=== PATIENT | female | born 1955 | race African-American/Black ===

== ENCOUNTER 2016-11-24 20:56 | Emergency (ER) | payer BC, MEDICARE ==
[2016-11-24] MEDS ORDERED: ASPIRIN 81 MG TABLET, CHEWABLE PO ONE (20:59)
--- NOTE | 2016-11-24 21:22 | RADIOLOGY REPORT (SQ) ---
EXAM DESCRIPTION: CHEST SINGLE VIEW COMPLETED DATE/TIME: 11/24/2016 9:12 pm REASON FOR STUDY: CP/ SOB COMPARISON: 05/13/2014 EXAM PARAMETERS: NUMBER OF VIEWS: One view. TECHNIQUE: Single frontal radiographic view of the chest acquired. RADIATION DOSE: NA LIMITATIONS: None. FINDINGS: LUNGS AND PLEURA: No opacities, masses or pneumothorax. No pleural effusion. MEDIASTINUM AND HILAR STRUCTURES: No masses. Contour normal. HEART AND VASCULAR STRUCTURES: Heart normal in size. Normal vasculature. BONES: No acute findings. HARDWARE: None in the chest. OTHER: No other significant finding. IMPRESSION: NO ACUTE RADIOGRAPHIC FINDING IN THE CHEST. TECHNICAL DOCUMENTATION: JOB ID: [id number]
[2016-11-24 21:24] LABS: ABSOLUTE EOSINOPHILS # (AUTO) 0.1 10^3/uL (0.0-0.6); ABSOLUTE MONOCYTES (AUTO) 0.5 10^3/uL (0.1-1.4); ABSOLUTE NEUT (AUTO) 1.9 10^3/uL (1.7-8.2); BASOPHILS % (AUTO) 0.9 % (0-2); EOSINOPHILS % (AUTO) 1.5 % (0-6); HEMATOCRIT 39.1 % (36.0-47.0); HGB HCT DIFFERENCE -0.1; LYMPHOCYTES % (AUTO) 54.5 % (13-45); MEAN CORPUSCULAR HEMOGLOBIN 30.4 pg (27.0-33.4); MEAN CORPUSCULAR HGB CONC 33.2 g/dL (32.0-36.0); MEAN CORPUSCULAR VOLUME 91 fl (80-97); MONOCYTES % (AUTO) 8.3 % (3-13); RED BLOOD COUNT 4.28 10^6/uL (3.72-5.28); RED CELL DISTRIBUTION WIDTH 14.1 % (11.5-14.0); SEGMENTED NEUTROPHILS % (AUTO) 34.8 % (42-78); WHITE BLOOD COUNT 5.5 10^3/uL (4.0-10.5)
[2016-11-24] MEDS ORDERED: SUCRALFATE 1 GM TABLET PO ONE (21:31)
[2016-11-24] MEDS ORDERED: FAMOTIDINE 20 MG TABLET PO ONE (21:31)
[2016-11-24] MEDS ORDERED: OXYCODONE-ACETAMINOPHEN 5-325 MG TABLET PO ONE (21:31)
--- NOTE | 2016-11-24 21:34 | ER Document Report ---
ED General - General Chief Complaint: Chest Pain Stated Complaint: CHEST PAIN Time Seen by Provider: 11/24/16 21:25 Notes: Patient is a 61-year-old female who comes emergency department by EMS for chief complaint of chest pain. She states it is a burning pain in her left upper abdomen and lower chest and also in the upper mid abdomen. Symptoms started 1 hour prior to arrival. She reports nausea. She denies radiation of pain, injury, shortness of breath. She states she was wheezing when she was given a treatment prior to arrival along with Zofran and 1 sublingual nitroglycerin tablet. She takes omeprazole for GERD, has a history of COPD/asthma, has not smoked since 1983, also has a history of hypertension, IBS she denies any cardiovascular history personally or in her family. PMH of hysterectomy. TRAVEL OUTSIDE OF THE [place] IN LAST 30 DAYS: No - Related Data Allergies/Adverse Reactions: diphenhydramine HCl [From Benadryl] Allergy (Verified 05/13/14 07:56) metronidazole [From Flagyl] Allergy (Verified 05/13/14 07:56) Metronidazole HCl [From Flagyl] Allergy (Verified 05/13/14 07:56) Penicillins Allergy (Verified 05/13/14 07:56) Past Medical History - General Information source: Patient - Social History Smoking Status: Former Smoker Frequency of alcohol use: None Drug Abuse: None Lives with: Family Family History: Reviewed & Not Pertinent - Past Medical History Cardiac Medical History: Reports: Hx Hypertension Denies: Hx Congestive Heart Failure, Hx Coronary Artery Disease, Hx Heart Attack, Hx Pulmonary Embolism Pulmonary Medical History: Reports: Hx Asthma, Hx COPD, Hx Pneumonia Endocrine Medical History: Denies: Hx Diabetes Mellitus Type 1, Hx Diabetes Mellitus Type 2 GI Medical History: Reports: Hx Gastroesophageal Reflux Disease, Hx Hiatal Hernia Past Surgical History: Reports: Hx Hysterectomy, Hx Orthopedic Surgery - spine Review of Systems - Review of Systems Constitutional: No symptoms reported EENT: No symptoms reported Cardiovascular: See HPI Respiratory: No symptoms reported Gastrointestinal: See HPI Genitourinary: No symptoms reported Female Genitourinary: No symptoms reported Musculoskeletal: No symptoms reported Skin: No symptoms reported Hematologic/Lymphatic: No symptoms reported Neurological/Psychological: No symptoms reported Physical Exam - Vital signs Vitals: Resp Pulse Ox 18 100 11/24/16 21:09 11/24/16 21:09 Interpretation: Normal - General General appearance: Anxious In distress: Mild - patient appears to be in some pain, but no severe distress - HEENT Head: Normocephalic, Atraumatic Eyes: Normal Pupils: PERRL - Respiratory Respiratory status: No respiratory distress Chest status: Nontender Breath sounds: Normal. No: Decreased air movement, Rhonchi Chest palpation: Normal - Cardiovascular Rhythm: Regular. No: Tachycardia Heart sounds: Normal auscultation, S1 appreciated, S2 appreciated Murmur: No - Abdominal Inspection: Normal Distension: No distension Bowel sounds: Normal Tenderness: Nontender, Tender - tender in general upper abdomen, worse in LUQ and epigastric areas, lower abdomen benign Organomegaly: No organomegaly - Back Back: Normal, Nontender. No: Tender - Extremities General upper extremity: Normal inspection, Nontender, Normal color, Normal ROM , Normal temperature General lower extremity: Normal inspection, Nontender, Normal color, Normal ROM , Normal temperature, Normal weight bearing. No: Cal's sign - Neurological Neuro grossly intact: Yes Cognition: Normal Orientation: AAOx4 [place] Coma Scale Eye Opening: Spontaneous Dora Coma Scale Verbal: Oriented Dora Coma Scale Motor: Obeys Commands [place] Coma Scale Total: 15 Speech: Normal Motor strength normal: LUE, RUE, LLE, RLE Sensory: Normal - Psychological Associated symptoms: Normal affect, Normal mood, Anxious - Skin Skin Temperature: Warm Skin Moisture: Dry Skin Color: Normal Course - Re-evaluation Re-evalutation: On examination patient has left upper quadrant and epigastric pain, she actually appears quite uncomfortable. Given multiple medications, she states it is a burning pain so she will be also given Carafate and Pepcid. EKG shows sinus rhythm with no T-wave inversions or ST segment abnormalities in consecutive leads. No comparison EKG. chest x-ray unremarkable. CBC, chemistry, lipase unremarkable. On reevaluation she is still uncomfortable. Patient has had previous abdominal surgeries, pain is in the general mid upper abdomen now, after discussion we will perform CAT scan to rule out any obstructive pathology. No free air on chest x-ray. No fever, tachycardia, or hypotension. Appears to be gastrointestinal in source, however we will cycle troponin because of timeframe with initial symptoms. After pain medication patient is now symptom-free. She just has hiccups intermittently. 11/25/16 02:[address] Bradford. Repeat troponin found to be significantly elevated at 0.22, called and spoke with [facility], they do not have any beds, patient prefers [facility] after this. Spoke with Dr. Smith, internal medicine, patient will be admitted to his service, he requests in addition to the Lovenox given that patient also be given 80 mg of Lipitor. Patient was already previously given aspirin. Patient anxious, asking for valium, given small dose. 11/25/16 04:15 Patient now complaining of chest pain again, repeating EKG, givine 2 mg morphine , placing on nitroglycerine drip. 11/25/16 04:27 Called and spoke with transfer center, informed them that patient is now on nitroglycerin drip and repeating EKG, this does not change bed status per transfer center. 11/25/16 04:43 EKG with no change from prior. Patient chest pain free, denies any current complaints. Unremarkable vital signs. Stable for transport, transport team has just arrived. - Vital Signs Vital signs: Temp Pulse Resp BP Pulse Ox 20 150/86 H 99 11/25/16 04:37 11/25/16 04:37 11/25/16 04:37 - Laboratory Result Diagrams: 11/24/16 21:15 11/24/16 21:15 Laboratory results interpreted by me: 11/24/16 11/24/16 21:15 21:15 RDW 14.1 H Plt Count 114 L Seg Neutrophils % 34.8 L Lymphocytes % 54.5 H Carbon Dioxide 31 H Creatine Kinase 147 H Critical Care Note - Critical Care Note Total time excluding time spent on procedures (mins): 40 - NSTEMI, chest pain, abdominal pain Comments: Please allow 40 minutes of critical care time for evaluation, treatment, review of old records, discussion with patient and family, consultation and transfer to tertiary care center. Interventions including aspirin, Lovenox, nitroglycerin drip, pain medications. Discharge - Discharge Clinical Impression: NSTEMI (non-ST elevated myocardial infarction) Chest pain Qualifiers: Chest pain type: unspecified Qualified Code(s): R07.9 - Chest pain, unspecified Abdominal pain Qualifiers: Abdominal location: upper abdomen, unspecified Qualified Code(s): R10.10 - Upper abdominal pain, unspecified Condition: Stable Disposition: [facility] Referrals: YANE GUERRERO MD [Primary Care Provider] - Follow up as needed
[2016-11-24 21:42] LABS: ALANINE AMINOTRANSFERASE 27 U/L (9-52); ALBUMIN 4.2 g/dL (3.5-5.0); ALKALINE PHOSPHATASE 53 U/L (38-126); ANION GAP 10 (5-19); ASPARTATE AMINO TRANSFERASE 31 U/L (14-36); BILIRUBIN,DIRECT 0.4 mg/dL (0.0-0.4); BILIRUBIN,TOTAL 0.5 mg/dL (0.2-1.3); BLOOD UREA NITROGEN 15 mg/dL (7-20); CALCIUM 9.9 mg/dL (8.4-10.2); CARBON DIOXIDE 31 mmol/L (22-30); CHLORIDE 104 mmol/L (98-107); CREATINE KINASE 147 U/L (30-135); CREATININE RESULT 0.86 mg/dL (0.52-1.25); GLUCOSE 98 mg/dL (75-110); POTASSIUM 3.9 mmol/L (3.6-5.0); SODIUM 144.9 mmol/L (137-145); TOTAL PROTEIN 7.2 g/dL (6.3-8.2)
[2016-11-24 21:57] LABS: TROPONIN I < 0.012 ng/mL
[2016-11-24 22:20] LABS: APPEARANCE,URINE SLIGHTLY-CLOUDY; BILIRUBIN,URINE NEGATIVE (NEGATIVE); GLUCOSE, URINE NEGATIVE (NEGATIVE); KETONES,URINE NEGATIVE (NEGATIVE); LEUKOCYTE ESTERASE,URINE NEGATIVE (NEGATIVE); NITRITE,URINE NEGATIVE (NEGATIVE); PROTEIN,URINE NEGATIVE (NEGATIVE); URINE SPECIFIC GRAVITY 1.014; UROBILINOGEN,URINE NEGATIVE mg/dL (<2.0)
[2016-11-24] MEDS ORDERED: ONDANSETRON HCL INJ/PF 4 MG/2 ML SDV IV ONE (22:40)
[2016-11-24] MEDS ORDERED: HYDROMORPHONE HCL INJ/PF 2 MG/ML AMPULE IV ONE (22:40)
--- NOTE | 2016-11-25 01:58 | RADIOLOGY REPORT (SQ) ---
EXAM DESCRIPTION: CT ABD/PELVIS ORAL ONLY COMPLETED DATE/TIME: 11/25/2016 1:30 am REASON FOR STUDY: sharp mid/upper abd pain COMPARISON: CR, chest, 11/24/2016. TECHNIQUE: CT scan of the abdomen and pelvis performed without intravenous contrast. Oral contrast only. Images reviewed with lung, soft tissue, and bone windows. Reconstructed coronal and sagittal M MN images reviewed. All images stored on PACS. All CT scanners at this facility use dose modulation, iterative reconstruction, and/or weight based d osing when appropriate to reduce radiation dose to as low as reasonably achievable (ALARA). [facility]: Dose Right [facility]: CareDose [facility]: Dose Right [facility]: Teradose 4D [facility]: Smart doForms RADIATION DOSE: Up-to-date CT equipment and radiation dose reduction techniques were employed. CTDIv ol: 13.9 mGy. DLP: 683 mGy-cm.mGy. LIMITATIONS: No IV contrast. Allergy history noted. FINDINGS: LOWER CHEST: Small bilateral lower lobar atelectasis or scar. NON-CONTRASTED LIVER, SPLEEN, ADRENALS: Evaluation limited by lack of IV contrast. No identified sign ificant masses. PANCREAS: No masses. No peripancreatic inflammatory changes. GALLBLADDER: No identified stones by CT criteria. No inflammatory changes to suggest cholecystitis. RIGHT KIDNEY AND URETER: No suspicious masses. Assessment limited by lack of IV contrast. No signif icant calcifications. No hydronephrosis or hydroureter. LEFT KIDNEY AND URETER: No suspicious masses. Assessment limited by lack of IV contrast. No signifi cant calcifications. No hydronephrosis or hydroureter. AORTA AND RETROPERITONEUM: No aneurysm. No retroperitoneal masses or adenopathy. BOWEL AND PERITONEAL CAVITY: No obvious masses or inflammatory changes. No free fluid. APPENDIX: No evidence of appendicitis. PELVIS, BLADDER, AND ABDOMINAL WALL:No abnormal masses. No free fluid. Bladder normal. BONES: Mild disc desiccation. Moderate levo convexity. OTHER: No other significant finding. IMPRESSION: NO SIGNIFICANT OR ACUTE PROCESS IN THE ABDOMEN OR PELVIS. TECHNICAL DOCUMENTATION: JOB ID: [id number] Quality ID # [id number]: Final reports with documentation of one or more dose reduction techniques (e.g., Au tomated exposure control, adjustment of the mA and/or kV according to patient size, use of iterative reconstruction technique) 2010 [employer]- All Rights Reserved
[2016-11-25] MEDS ORDERED: ATORVASTATIN CALCIUM 80 MG TABLET PO ONE (03:11)
[2016-11-25] MEDS ORDERED: ENOXAPARIN SODIUM INJ 100 MG/1 ML DISP.SYRIN SUBCUT SCH ×2 (03:15)
[2016-11-25] MEDS ORDERED: DIAZEPAM INJ 10 MG/2 ML DISP.SYRIN IV ONE (03:20)
[2016-11-25] MEDS ORDERED: NITROGLYCERIN/D5W 250 ML IV PRN (04:25)
[2016-11-25] MEDS ORDERED: MORPHINE SULFATE 10 MG/ML INJ IV ONE (04:25)
[2016-11-25] MEDS ORDERED: NITROGLYCERIN/D5W 50 MG/250 ML RTUINJ IV ONE (04:29)
[2016-11-25] MEDS ORDERED: MORPHINE SULFATE 10 MG/ML INJ ONE (04:30)
[2016-11-25 04:43] VITALS: BP 150/86
--- NOTE | 2016-11-25 10:49 | EKG REPORT ---
SEVERITY:- BORDERLINE ECG - SINUS RHYTHM PROBABLE LEFT ATRIAL ABNORMALITY : Confirmed by: Lilian Barker 25-Nov-2016 10:48:32
== END 2016-11-25 04:51 | disposition short-term general hospital (02) ==
LOC: ER 20:56
DX: I21.4 Non-ST elevation (NSTEMI) myocardial infarction (principal); R10.10 Upper abdominal pain, unspecified; R07.9 Chest pain, unspecified; R11.0 Nausea; K21.9 Gastro-esophageal reflux disease without esophagitis; I10 Essential (primary) hypertension; K58.9 Irritable bowel syndrome, unspecified; Z88.0 Allergy status to penicillin
CPT/HCPCS: 93005; 99291; 96372; 96375; 96365; 36415; 82553; 82550; 83690; 85025; 80053; 81001; 84484; 71010; 74176; 93010; A9270 ×5; J3360; J2270; J1170; J2405; J3490; J1650

== ENCOUNTER 2017-08-05 11:39 | Emergency (ER) | payer BC, MEDICARE ==
[2017-08-05] MEDS ORDERED: ASPIRIN 81 MG TABLET, CHEWABLE PO ONE (12:56)
[2017-08-05 13:17] LABS: ABSOLUTE BASOPHILS # (AUTO) 0.1 10^3/uL (0.0-0.2); ABSOLUTE EOSINOPHILS # (AUTO) 0.1 10^3/uL (0.0-0.6); ABSOLUTE LYMPHOCYTES (AUTO) 2.6 10^3/uL (0.5-4.7); ABSOLUTE MONOCYTES (AUTO) 0.4 10^3/uL (0.1-1.4); ABSOLUTE NEUT (AUTO) 2.2 10^3/uL (1.7-8.2); BASOPHILS % (AUTO) 1.2 % (0-2); EOSINOPHILS % (AUTO) 1.5 % (0-6); HEMATOCRIT 40.6 % (36.0-47.0); HEMOGLOBIN 13.2 g/dL (12.0-15.5); LYMPHOCYTES % (AUTO) 48.2 % (13-45); MEAN CORPUSCULAR HEMOGLOBIN 29.3 pg (27.0-33.4); MEAN CORPUSCULAR HGB CONC 32.4 g/dL (32.0-36.0); MEAN CORPUSCULAR VOLUME 91 fl (80-97); MONOCYTES % (AUTO) 7.1 % (3-13); RED BLOOD COUNT 4.49 10^6/uL (3.72-5.28); RED CELL DISTRIBUTION WIDTH 13.8 % (11.5-14.0); TOTAL CELLS COUNTED % (AUTO) 100 %; WHITE BLOOD COUNT 5.4 10^3/uL (4.0-10.5)
--- NOTE | 2017-08-05 13:22 | RADIOLOGY REPORT (SQ) ---
EXAM DESCRIPTION: CHEST SINGLE VIEW COMPLETED DATE/TIME: 08/05/2017 1:14 pm REASON FOR STUDY: Chest pain COMPARISON: 11/24/2016. EXAM PARAMETERS: NUMBER OF VIEWS: One view. TECHNIQUE: Single frontal radiographic view of the chest acquired. RADIATION DOSE: NA LIMITATIONS: None. FINDINGS: LUNGS AND PLEURA: No acute infiltrates or effusions. MEDIASTINUM AND HILAR STRUCTURES: No masses. Contour normal. HEART AND VASCULAR STRUCTURES: The heart is normal. The pulmonary vasculature is normal. BONES: No acute findings. HARDWARE: Findings consistent with cervical fusion. OTHER: Chest leads in place. IMPRESSION: No acute disease. TECHNICAL DOCUMENTATION: JOB ID: [id number] SC-69 2010 [employer]- All Rights Reserved Reading location - IP/workstation name: [email or web address]
[2017-08-05 13:29] LABS: ALANINE AMINOTRANSFERASE 30 U/L (9-52); ALBUMIN 4.4 g/dL (3.5-5.0); ALKALINE PHOSPHATASE 49 U/L (38-126); ANION GAP 10 (5-19); ASPARTATE AMINO TRANSFERASE 28 U/L (14-36); BILIRUBIN,DIRECT 0.3 mg/dL (0.0-0.4); BILIRUBIN,TOTAL 0.4 mg/dL (0.2-1.3); BLOOD UREA NITROGEN 17 mg/dL (7-20); CALCIUM 9.8 mg/dL (8.4-10.2); CARBON DIOXIDE 32 mmol/L (22-30); CHLORIDE 104 mmol/L (98-107); CREATINE KINASE 112 U/L (30-135); GLUCOSE 79 mg/dL (75-110); POTASSIUM 4.1 mmol/L (3.6-5.0); SODIUM 145.8 mmol/L (137-145); TOTAL PROTEIN 7.1 g/dL (6.3-8.2)
[2017-08-05 13:41] LABS: CREATINE KINASE MB 1.01 ng/mL (<4.55)
[2017-08-05 13:42] LABS: TROPONIN I < 0.012 ng/mL
[2017-08-05 13:48] LABS: PLATELET COUNT 128 10^3/uL (150-450)
[2017-08-05] MEDS ORDERED: PREDNISONE 20 MG TABLET PO ONE (14:14)
[2017-08-05] MEDS ORDERED: AZITHROMYCIN 250 MG TABLET PO ONE (14:14)
[2017-08-05] MEDS ORDERED: ALBUTEROL SULFATE HFA (90 MCG/PUFF) 8 GM MDI (1 MDI/ER DISP) IH ONE (14:18)
--- NOTE | 2017-08-05 14:23 | ER Document Report ---
ED General <LORNE MITCHELL - Last Filed: 08/05/17 14:30> - General TRAVEL OUTSIDE OF THE [place] IN LAST 30 DAYS: No - HPI Patient complains to provider of: Chest pain shortness of breath <SUGAR ALMARAZ - Last Filed: 08/05/17 15:29> - General Chief Complaint: Chest Congestion Stated Complaint: CHEST PAIN Time Seen by Provider: 08/05/17 12:57 - HPI Notes: Patient coming in for evaluation chest pain shortness of breath ongoing for the last 24 hours. Was seen in at a local urgent care given a breathing treatment as the patient was wheezing however told to come to the ER for further evaluation of her chest pain. Patient upon my evaluation resting company no signs of any obvious distress. Patient states left-sided chest pain worse whenever she is bending over and then stands up. Patient states history of smoking however quit in the . Patient denies any recent antibiotics denies any recent travel. Denies fevers chills nausea vomiting patient does state that in the last 2 days she has had a change in her sputum from clear to green and also has been short of breath for approximately 1 week. Chest pain started in the last 24 hours Patient states heart attack last year with a catheterization performed [facility] no stent placement was performed at that time. Patient states she has been medically managed since (SUGAR ALMARAZ) - Related Data Allergies/Adverse Reactions: diphenhydramine HCl [From Benadryl] Allergy (Verified 05/13/14 07:56) metronidazole [From Flagyl] Allergy (Verified 05/13/14 07:56) Metronidazole HCl [From Flagyl] Allergy (Verified 05/13/14 07:56) Penicillins Allergy (Verified 05/13/14 07:56) Past Medical History - Social History Smoking Status: Former Smoker Family History: Reviewed & Not Pertinent - Past Medical History Cardiac Medical History: Reports: Hx Hypertension Denies: Hx Congestive Heart Failure, Hx Coronary Artery Disease, Hx Heart Attack, Hx Pulmonary Embolism Pulmonary Medical History: Reports: Hx Asthma, Hx COPD, Hx Pneumonia Endocrine Medical History: Denies: Hx Diabetes Mellitus Type 1, Hx Diabetes Mellitus Type 2 GI Medical History: Reports: Hx Gastroesophageal Reflux Disease, Hx Hiatal Hernia Past Surgical History: Reports: Hx Hysterectomy, Hx Orthopedic Surgery - spine <SUGAR ALMARAZ - Last Filed: 08/05/17 15:29> Review of Systems - Review of Systems Constitutional: No symptoms reported EENT: No symptoms reported Cardiovascular: Chest pain Respiratory: Short of breath Gastrointestinal: No symptoms reported Genitourinary: No symptoms reported Female Genitourinary: No symptoms reported Musculoskeletal: No symptoms reported Skin: No symptoms reported Hematologic/Lymphatic: No symptoms reported Neurological/Psychological: No symptoms reported -: Yes All other systems reviewed and negative <SUGAR ALMARAZ - Last Filed: 08/05/17 15:29> Physical Exam - Vital signs Interpretation: Normal - General General appearance: Appears well, Alert - HEENT Head: Normocephalic, Atraumatic Eyes: Normal Pupils: PERRL - Respiratory Respiratory status: No respiratory distress Chest status: Nontender Breath sounds: Wheezing Chest palpation: Normal - Cardiovascular Rhythm: Regular Heart sounds: Normal auscultation Murmur: No - Abdominal Inspection: Normal Distension: No distension Bowel sounds: Normal Tenderness: Nontender Organomegaly: No organomegaly - Back Back: Normal, Nontender - Extremities General upper extremity: Normal inspection, Nontender, Normal color, Normal ROM , Normal temperature General lower extremity: Normal inspection, Nontender, Normal color, Normal ROM , Normal temperature, Normal weight bearing. No: Cal's sign - Neurological Neuro grossly intact: Yes Cognition: Normal Orientation: AAOx4 Dora Coma Scale Eye Opening: Spontaneous Dora Coma Scale Verbal: Oriented Dora Coma Scale Motor: Obeys Commands Dora Coma Scale Total: 15 Speech: Normal Motor strength normal: LUE, RUE, LLE, RLE Sensory: Normal - Psychological Associated symptoms: Normal affect, Normal mood - Skin Skin Temperature: Warm Skin Moisture: Dry Skin Color: Normal <SUGAR ALMARAZ - Last Filed: 08/05/17 15:29> - Vital signs Vitals: Temp Pulse Resp BP Pulse Ox 97.6 F 66 18 136/76 H 98 08/05/17 11:54 08/05/17 11:54 08/05/17 11:54 08/05/17 11:54 08/05/17 11:54 Course - Laboratory Result Diagrams: 08/05/17 13:04 08/05/17 13:04 <LORNE MITCHELL - Last Filed: 08/05/17 14:30> - Laboratory Result Diagrams: 08/05/17 13:04 08/05/17 13:04 <SUGAR ALMARAZ - Last Filed: 08/05/17 15:29> - Re-evaluation Re-evalutation: 08/05/17 15:28 EKG chest x-ray laboratory studies not show any signs of cardiac ischemia significant infection such as pneumonia or other critical abnormalities. Because the patient's change in sputum will treat patient for bronchitis with bronchodilators prednisone and Zithromax. Patient states understanding of treatment plan and agrees with discharge home. The patient has atypical chest pain as the patient's chest pain is not suggestive of pulmonary embolus, cardiac ischemia, aortic dissection, or other serious etiology. Given the extremely low risk of these diagnoses further testing and evaluation for these possibilities does not appear to be indicated at this time. The patient has been instructed to return if the symptoms worsen or change in any way. (SUGAR ALMARAZ) - Vital Signs Vital signs: Temp Pulse Resp BP Pulse Ox 98.2 F 66 21 H 121/80 100 08/05/17 14:43 08/05/17 11:54 08/05/17 14:43 08/05/17 14:43 08/05/17 14:43 - Laboratory Laboratory results interpreted by me: 08/05/17 08/05/17 13:04 13:04 Plt Count 128 L Lymphocytes % 48.2 H Sodium 145.8 H Carbon Dioxide 32 H Discharge <LORNE MITCHELL - Last Filed: 08/05/17 14:30> <SUGAR ALMARAZ - Last Filed: 08/05/17 15:29> - Discharge Clinical Impression: Bronchitis Condition: Good Disposition: HOME, SELF-CARE Instructions: Bronchitis (PENDING SALE TO [facility]) Additional Instructions: Your chest x-ray laboratory studies EKG did not show any signs of cardiac ischemia cardiac damage no signs of pneumonia or significant infection I do believe you have underlying bronchitis. We will treat this because of change in sputum with an antibiotic also will give the steroids and bronchodilators. Please make sure you drink plenty water to stay well-hydrated please follow-up with your primary care physician take all medications as prescribed return to the ER if symptoms worsen. Prescriptions: Azithromycin [Zithromax] 250 mg PO DAILY 4 Days #4 tablet Dextromethorphan HBr [Tussin Cough] 10 mg PO Q8 #120 ml Prednisone [Deltasone] 60 mg PO DAILY #24 tablet
[2017-08-05 15:05] VITALS: BP 121/80
--- NOTE | 2017-08-05 22:58 | EKG REPORT ---
SEVERITY:- NORMAL ECG - SINUS RHYTHM : Confirmed by: Lilian Barker 05-Aug-2017 22:58:01
== END 2017-08-05 14:56 | disposition home or self-care (01) ==
LOC: ER 11:39
DX: J40 Bronchitis, not specified as acute or chronic (principal); R07.9 Chest pain, unspecified; R06.02 Shortness of breath; I10 Essential (primary) hypertension; J44.9 Chronic obstructive pulmonary disease, unspecified; Z90.710 Acquired absence of both cervix and uterus
CPT/HCPCS: 93005; 99284; 36415; 82553; 82550; 85025; 80053; 84484; 71045; 93010; A9270 ×2; J3490; J7512